=== PATIENT | male | born 1960 ===

== ENCOUNTER 2016-11-19 11:03 | Emergency (ER) | payer SELFPAY ==
[~2016-11-19] VITALS: Ht 188 cm; Wt 125.3 kg
[~2016-11-19 11:03] MED LIST: ASPEC81 PO; INSDGI SC; LISI40TA PO; METF-383 PO; SIMV40TA2 PO
[2016-11-19 11:09] VITALS: TEMP 36.9; Ht 188 cm; Wt 125.3 kg
[2016-11-19] MEDS ORDERED: ONDANSETRON INJ 2 MG/ML 2 ML VIAL IV STA (12:56)
[2016-11-19] MEDS ORDERED: MoRPHine SULFATE 4 MG/ML 1 ML CARP\\VIAL IV STA (12:56)
[2016-11-19 13:30] LABS: BASO % 0.2 %; BASO ABS # 0.02 K/uL (0-0.2); COMPLETE YES; EOS % 2.3 %; IG% 0.5 %; LYMPH % 19.9 %; LYMPH ABS # 1.84 K/uL (1.2-3.4); MEAN CELL VOLUME 84.4 fL (80-100); MEAN CORPUSCULAR HEMOGLOBIN 29.5 pg (25-34); MEAN PLATELET VOLUME 10.7 fL (7.4-10.4); NEUT % 71.1 %; PLATELET COUNT 195 K/uL (130-400); RED BLOOD COUNT 5.45 M/uL (4.7-6.1); WHITE BLOOD COUNT 9.24 K/uL (4.8-10.8)
[2016-11-19 13:51] LABS: ALT/SGPT 17 U/L (12-78); BLOOD UREA NITROGEN 12 mg/dl (7-18); BUN/CREATININE RATIO 8.3 (10-20); CALCIUM 9.4 mg/dl (8.5-10.1); CARBON DIOXIDE 28 mmol/L (21-32); CHLORIDE 100 mmol/L (98-107); GLUCOSE 282 mg/dl (70-99); POTASSIUM 3.7 mmol/L (3.5-5.1); SODIUM 139 mmol/L (136-145)
[2016-11-19 13:56] LABS: ALKALINE PHOSPHATASE 89 U/L (45-117); AST/SGOT 15 U/L (15-37)
[2016-11-19 14:33] LABS: URINE APPEARANCE CLEAR (CLEAR); URINE BILIRUBIN NEG (NEG); URINE COLOR YELLOW; URINE NITRITE NEG (NEG); URINE PH 6.5 (4.5-7.5); URINE SPECIFIC GRAVITY 1.016 (1.000-1.030); UROBILINOGEN NEG (NEG)
[2016-11-19 14:48] LABS: MANUAL MICROSCOPIC REQUIRED? NO; REVIEW REQ? NO
--- NOTE | 2016-11-19 15:03 | DIAGNOSTIC IMAGING REPORT ---
CHEST 2 VIEWS ROUTINE CLINICAL HISTORY: Chest pain. Evaluate for pneumonia. COMPARISON STUDY: No previous studies for comparison. FINDINGS: Lung volume are normal. No consolidation is identified. There is no pneumothorax or pleural effusion. Pulmonary vascularity is normal. There is borderline cardiomegaly. IMPRESSION: 1. No acute cardiopulmonary findings. 2. Top normal cardiac size. Electronically signed by: Jesus Cuenca M.D. 11/19/2016 3:01 PM Dictated Date/Time: 11/19/2016 3:00 PM
--- NOTE | 2016-11-19 15:12 | DIAGNOSTIC IMAGING REPORT ---
BILIARY ULTRASOUND CLINICAL HISTORY: Right upper quadrant abdominal pain COMPARISON STUDY: No previous studies for comparison. FINDINGS: The liver is of increased echogenicity, a finding which may indicate hepatic steatosis. There is a 1 cm hypoechoic nodule within the left lobe of the liver. The gallbladder appears sonographically normal. There is no gallbladder wall thickening and no evidence of pericholecystic fluid. The common bile duct is at the upper limits of normal in size measuring 6 mm. There is no right-sided hydronephrosis. Evaluation the pancreas was limited. IMPRESSION: 1. Ultrasonographically normal gallbladder. No evidence of ductal dilatation. 2. Common bile duct at the upper limits of normal in size measuring 6 mm 3. Suboptimal visualization of the pancreas 4. Nonspecific 1 cm hypoechoic nodule within the left lobe of the liver Electronically signed by: Brody Estrada M.D. 11/19/2016 3:10 PM Dictated Date/Time: 11/19/2016 3:07 PM
[2016-11-19] MEDS ORDERED: OPTIRAY 320 IV PRN (15:30)
--- NOTE | 2016-11-19 16:16 | DIAGNOSTIC IMAGING REPORT ---
CT OF THE ABDOMEN AND PELVIS WITH CONTRAST CLINICAL HISTORY: Upper abdominal pain. COMPARISON STUDY: None. TECHNIQUE: Following IV administration of 116 mL of Optiray-320, axial images of the abdomen and pelvis were obtained from the lung bases to the proximal femurs. Images were reviewed in the axial, sagittal, and coronal planes. IV contrast was administered without complication. CT DOSE: 2120.69 mGy.cm FINDINGS: The chest will be reported separately. The liver, spleen, adrenal glands are unremarkable. There are suspected cysts within the kidneys. There is no hydronephrosis. Both nephrograms are symmetric. No pneumatosis, free air or portal venous gas is present. There is mild infiltration adjacent to the distal stomach, pancreas, duodenum and within the alex hepatis. There is no biliary or pancreatic ductal dilatation. There is no evidence for a bowel obstruction. The appendix is normal. There is a fat-containing umbilical hernia. There is colonic diverticulosis without evidence for acute diverticulitis. IMPRESSION: Mild infiltration adjacent to the distal stomach, pancreas, duodenum and within the alex hepatis. This represents nonspecific inflammation and differential considerations include acute pancreatitis and peptic ulcer disease. No free air. No abscess. Electronically signed by: Jesus Cuenca M.D. 11/19/2016 4:14 PM Dictated Date/Time: 11/19/2016 4:05 PM
--- NOTE | 2016-11-19 16:25 | DIAGNOSTIC IMAGING REPORT ---
CHEST CTA for PULMONARY ARTERIES CT DOSE: HISTORY: Atypical chest pain. TECHNIQUE: Multiaxial CT images of the chest were performed following the intravenous administration of contrast to evaluate the pulmonary arteries. Maximal intensity projection images were also obtained. COMPARISON STUDY: Chest 11/19/2016. FINDINGS: The ascending thoracic aorta at the aortic root measures up to 4.4 cm in diameter. No evidence for dissection. The bilateral lower lobe segmental and subsegmental pulmonary arteries are nondiagnostic due to the motion artifact. The remaining pulmonary arteries are patent. No pleural or pericardial effusions. No mediastinal or hilar lymphadenopathy. Mild inflammatory change surrounding the pancreas. This is only partially visualized. No pneumothorax. The central airways are patent. No focal lung consolidations to suggest pneumonia. IMPRESSION: 1. No evidence for pulmonary embolus with limitations as described above. 2. Mild aneurysmal dilatation of the ascending thoracic aorta measuring up to 4.4 cm. . 3. Mild inflammatory change surrounding the pancreas. Please refer to the same day abdomen and pelvis CT for further evaluation. Electronically signed by: Fam Braga M.D. 11/19/2016 4:23 PM Dictated Date/Time: 11/19/2016 4:09 PM
[2016-11-19] MEDS ORDERED: ALUMINUM/MAGNESIUM SUSP 30 ML UDC PO STA (16:41)
[2016-11-19] MEDS ORDERED: LIDOCAINE HCL 2% VISC SOLN 20 ML UDC PO STA (16:41)
[2016-11-19] MEDS ORDERED: METOPROLOL TARTRATE 1 MG/ML VIAL IV STA (17:27)
[2016-11-19 18:09] VITALS: BP 148/82; PULSE 75; O2SAT 96
--- NOTE | 2016-11-19 19:13 | EMERGENCY ROOM VISIT NOTE ---
History Report prepared by Chalino: Junior Sanz Under the Supervision of: Dr. Robin Govea M.D. First contact with patient: 12:32 Chief Complaint: CHEST PAIN Stated Complaint: CHEST PAIN Nursing Triage Summary: Triage note: Pt reports chest pain, shortness of breath and nausea since yesterday. pt speaks Chanelle. 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 History of Present Illness The patient is a 56 year old male who presents to the Emergency Room with complaints of constant upper abdominal pain for the past 2 days. The pain is sharp in nature, and is rated 5/10 in severity. The pain is not exertional or modified after he eats. The pain does not radiate to the chest, jaw or arm. The patient also complains of nausea and multiple episodes of vomiting. He denies fevers, chills, chest pain, shortness of breath, diarrhea, black or bloody stools, increased leg swelling. He does not take Lasix for his baseline leg swelling. The patient does not have a history of abdominal surgeries. The patient has a history of diabetes and hypertension. Source of History: patient Onset: two days ago Position: abdomen (upper) Symptom Intensity: 5/10 Quality: sharp Timing: constant Associated Symptoms: + nausea, + vomiting, No SOB, No chest pain, No diarrhea, No fevers, No hematochezia, No melena Review of Systems See HPI for pertinent positives & negatives. A total of 10 systems reviewed and were otherwise negative. Past Medical & Surgical Medical Problems: (1) Diabetes mellitus, type II (2) Diabetic retinopathy (3) Dyslipidemia (4) Gout (5) Hypertension (6) Sleep apnea Family History Diabetes mellitus MOTHER Social History Smoking Status: Never Smoker Alcohol Use: occasionally Drug Use: none Marital Status: Housing Status: lives with family Occupation Status: employed Current/Historical Medications Scheduled Aspirin (Aspirin EC Low Dose), 81 MG PO DAILY Insulin Glargine (Lantus), 20 SC QPM Lisinopril (Zestril), 40 MG PO DAILY Metformin Hcl (Glucophage), 850 MG PO TIDM Simvastatin (Zocor), 40 MG PO QPM Allergies Coded Allergies: No Known Allergies (Unverified , 03/04/14) Physical Exam Vital Signs Date Time Temp Pulse Resp B/P Pulse Ox O2 Delivery O2 Flow Rate FiO2 11/19/16 18:09 75 16 148/82 96 11/19/16 17:38 83 157/100 11/19/16 16:52 81 17 162/91 94 Room Air 11/19/16 14:08 92 20 167/112 94 Room Air 11/19/16 13:59 90 11/19/16 13:17 87 20 170/116 96 11/19/16 11:30 86 11/19/16 11:09 36.9 88 18 177/117 98 Room Air Physical Exam Constitutional: Vital signs reviewed. Eyes: Pupils are equal round reactive to light. Conjunctiva are noninjected. ENT: Pharynx is clear without erythema or exudate. Mucous membranes are moist. Neck supple without meningeal signs. Respiratory: Clear to auscultation bilaterally. Breath sounds are equal bilaterally. Cardiovascular: Regular rate and rhythm. No rubs or gallops. GI: Soft, nondistended. Epigastric and right upper quadrant tenderness, no Stuart's sign. Bowel sounds are present. Musculoskeletal: No CVA tenderness. Bilateral lower extremity edema. Integumentary: No cyanosis. Neurological: The patient is awake and alert. No focal deficits. Psychiatric: Normal affect. Medical Decision & Procedures ER Provider Diagnostic Interpretation: X-ray results as stated below per interpretation by me and the radiologist: Other radiology results as stated below per my review and the radiologist's interpretation: CHEST 2 VIEWS ROUTINE CLINICAL HISTORY: Chest pain. Evaluate for pneumonia. COMPARISON STUDY: No previous studies for comparison. FINDINGS: Lung volume are normal. No consolidation is identified. There is no pneumothorax or pleural effusion. Pulmonary vascularity is normal. There is borderline cardiomegaly. IMPRESSION: 1. No acute cardiopulmonary findings. 2. Top normal cardiac size. Electronically signed by: Jesus Cuenca M.D. 11/19/2016 3:01 PM Dictated Date/Time: 11/19/2016 3:00 PM BILIARY ULTRASOUND CLINICAL HISTORY: Right upper quadrant abdominal pain COMPARISON STUDY: No previous studies for comparison. FINDINGS: The liver is of increased echogenicity, a finding which may indicate hepatic steatosis. There is a 1 cm hypoechoic nodule within the left lobe of the liver. The gallbladder appears sonographically normal. There is no gallbladder wall thickening and no evidence of pericholecystic fluid. The common bile duct is at the upper limits of normal in size measuring 6 mm. There is no right-sided hydronephrosis. Evaluation the pancreas was limited. IMPRESSION: 1. Ultrasonographically normal gallbladder. No evidence of ductal dilatation. 2. Common bile duct at the upper limits of normal in size measuring 6 mm 3. Suboptimal visualization of the pancreas 4. Nonspecific 1 cm hypoechoic nodule within the left lobe of the liver Electronically signed by: Brody Estrada M.D. 11/19/2016 3:10 PM Dictated Date/Time: 11/19/2016 3:07 PM CHEST CTA for PULMONARY ARTERIES CT DOSE: HISTORY: Atypical chest pain. TECHNIQUE: Multiaxial CT images of the chest were performed following the intravenous administration of contrast to evaluate the pulmonary arteries. Maximal intensity projection images were also obtained. COMPARISON STUDY: Chest 11/19/2016. FINDINGS: The ascending thoracic aorta at the aortic root measures up to 4.4 cm in diameter. No evidence for dissection. The bilateral lower lobe segmental and subsegmental pulmonary arteries are nondiagnostic due to the motion artifact. The remaining pulmonary arteries are patent. No pleural or pericardial effusions. No mediastinal or hilar lymphadenopathy. Mild inflammatory change surrounding the pancreas. This is only partially visualized. No pneumothorax. The central airways are patent. No focal lung consolidations to suggest pneumonia. IMPRESSION: 1. No evidence for pulmonary embolus with limitations as described above. 2. Mild aneurysmal dilatation of the ascending thoracic aorta measuring up to 4.4 cm. . 3. Mild inflammatory change surrounding the pancreas. Please refer to the same day abdomen and pelvis CT for further evaluation. Electronically signed by: Fam Braga M.D. 11/19/2016 4:23 PM Dictated Date/Time: 11/19/2016 4:[address] OF THE ABDOMEN AND PELVIS WITH CONTRAST CLINICAL HISTORY: Upper abdominal pain. COMPARISON STUDY: None. TECHNIQUE: Following IV administration of 116 mL of Optiray-320, axial images of the abdomen and pelvis were obtained from the lung bases to the proximal femurs. Images were reviewed in the axial, sagittal, and coronal planes. IV contrast was administered without complication. CT DOSE: 2120.69 mGy.cm FINDINGS: The chest will be reported separately. The liver, spleen, adrenal glands are unremarkable. There are suspected cysts within the kidneys. There is no hydronephrosis. Both nephrograms are symmetric. No pneumatosis, free air or portal venous gas is present. There is mild infiltration adjacent to the distal stomach, pancreas, duodenum and within the alex hepatis. There is no biliary or pancreatic ductal dilatation. There is no evidence for a bowel obstruction. The appendix is normal. There is a fat-containing umbilical hernia. There is colonic diverticulosis without evidence for acute diverticulitis. IMPRESSION: Mild infiltration adjacent to the distal stomach, pancreas, duodenum and within the alex hepatis. This represents nonspecific inflammation and differential considerations include acute pancreatitis and peptic ulcer disease. No free air. No abscess. Electronically signed by: Jesus Cuenca M.D. 11/19/2016 4:14 PM Dictated Date/Time: 11/19/2016 4:05 PM Laboratory Results 11/19/16 13:17 Red Blood Count 5.45, Mean Corpuscular Volume 84.4, Mean Corpuscular Hemoglobin 29.5, Mean Corpuscular Hemoglobin Concent 35.0, Mean Platelet Volume 10.7, Neutrophils (%) (Auto) 71.1, Lymphocytes (%) (Auto) 19.9, Monocytes (%) (Auto) 6.0, Eosinophils (%) (Auto) 2.3, Basophils (%) (Auto) 0.2, Neutrophils # (Auto) 6.57, Lymphocytes # (Auto) 1.84, Monocytes # (Auto) 0.55, Eosinophils # (Auto) 0.21, Basophils # (Auto) 0.02 11/19/16 13:17 Test 11/19/16 13:17 11/19/16 13:40 White Blood Count 9.24 K/uL (4.8-10.8) Red Blood Count 5.45 M/uL (4.7-6.1) Hemoglobin 16.1 g/dL (14.0-18.0) Hematocrit 46.0 % (42-52) Mean Corpuscular Volume 84.4 fL (80-100) Mean Corpuscular Hemoglobin 29.5 pg (25-34) Mean Corpuscular Hemoglobin Concent 35.0 g/dl (32-36) Platelet Count 195 K/uL (130-400) Mean Platelet Volume 10.7 fL (7.4-10.4) Neutrophils (%) (Auto) 71.1 % Lymphocytes (%) (Auto) 19.9 % Monocytes (%) (Auto) 6.0 % Eosinophils (%) (Auto) 2.3 % Basophils (%) (Auto) 0.2 % Neutrophils # (Auto) 6.57 K/uL (1.4-6.5) Lymphocytes # (Auto) 1.84 K/uL (1.2-3.4) Monocytes # (Auto) 0.55 K/uL (0.11-0.59) Eosinophils # (Auto) 0.21 K/uL (0-0.5) Basophils # (Auto) 0.02 K/uL (0-0.2) RDW Standard Deviation 40.9 fL (36.4-46.3) RDW Coefficient of Variation 13.9 % (11.5-14.5) Immature Granulocyte % (Auto) 0.5 % Immature Granulocyte # (Auto) 0.05 K/uL (0.00-0.02) Anion Gap 11.0 mmol/L (3-11) Est Creatinine Clear Calc Drug Dose 81.9 ml/min Estimated GFR () 64.2 Estimated GFR (Non- 55.4 BUN/Creatinine Ratio 8.3 (10-20) Calcium Level 9.4 mg/dl (8.5-10.1) Total Bilirubin 0.3 mg/dl (0.2-1) Direct Bilirubin < 0.1 mg/dl (0-0.2) Aspartate Amino Transf (AST/SGOT) 15 U/L (15-37) Alanine Aminotransferase (ALT/SGPT) 17 U/L (12-78) Alkaline Phosphatase 89 U/L (45-117) Troponin I < 0.015 ng/ml (0-0.045) Total Protein 6.9 gm/dl (6.4-8.2) Albumin 2.1 gm/dl (3.4-5.0) Lipase 338 U/L (73-393) Urine Color YELLOW Urine Appearance CLEAR (CLEAR) Urine pH 6.5 (4.5-7.5) Urine Specific [place] 1.016 (1.000-1.030) Urine Protein 4+ (NEG) Urine Glucose (UA) 3+ (NEG) Urine Ketones NEG (NEG) Urine Occult Blood 2+ (NEG) Urine Nitrite NEG (NEG) Urine Bilirubin NEG (NEG) Urine Urobilinogen NEG (NEG) Urine Leukocyte Esterase NEG (NEG) Urine WBC (Auto) 1-5 /hpf (0-5) Urine RBC (Auto) 0-4 /hpf (0-4) Urine Hyaline Casts (Auto) 0 /lpf (0-5) Urine Epithelial Cells (Auto) 10-20 /lpf (0-5) Urine Bacteria (Auto) NEG (NEG) Laboratory results as reviewed by me. Medications Administered Medications (Trade) Dose Ordered Sig/Evie Route Start Time Stop Time Status Last Admin Dose Admin Morphine Sulfate (MoRPHine SULFATE INJ) 4 mg ONE STAT IV 11/19/16 12:56 11/19/16 13:00 DC 11/19/16 13:29 4 MG Ondansetron HCl (Zofran Inj) 4 mg NOW STAT IV 11/19/16 12:56 11/19/16 13:00 DC 11/19/16 13:30 4 MG Lidocaine HCl (Viscous Lidocaine 2% Soln) 10 ml NOW STAT PO 11/19/16 16:41 11/19/16 16:42 DC 11/19/16 16:54 10 ML Al Hydroxide/Mg Hydroxide (Maalox Susp) 30 ml NOW STAT PO 11/19/16 16:41 11/19/16 16:42 DC 11/19/16 16:54 30 ML Metoprolol Tartrate (Lopressor Iv) 5 mg NOW STAT IV 11/19/16 17:27 11/19/16 17:29 DC 11/19/16 17:38 5 MG ECG Indication: abdominal pain Rate (beats per minute): 80 Rhythm: sinus rhythm Findings: Q waves (lead III), no ectopy ED Course 1240: The patient was evaluated by the [facility]. 1252: The patient was evaluated in room B10. A complete history and physical exam was performed. 1256: Zofran 4 mg IV, Morphine Sulfate 4 mg IV. 1515: Reassessed the patient. He still has pain and some tenderness. He is also short of breath. The flew back from [place] on Thursday. He agreed to a CT of his chest. 1641: Maalox 30 ml PO, Lidocaine 2% 10 ml PO. 1645: Talked with him about the test results. He will follow up with his doctor later this week. 1720: The patients blood pressure is 180/00. He says that he took his hypertension meds today. He is still having epigastric discomfort and denies chest pain. I reviewed the results with his son because he states that his parents have language difficulties. They will follow up with Dr. Ashby tomorrow. The patient does state that he drinks hard liquor everyday. 172: Lopressor 5 mg IV. 1753: The patient's pressure was 151/80. He is ready to go home. Medical Decision This is a 56-year-old male presents with upper abdominal pain. Differential diagnosis includes cholelithiasis, cholecystitis, gastritis, peptic ulcer disease, pancreatitis, pulmonary embolism, acute coronary syndrome. I did perform a limited focused review of portions of the patient's old chart on the electronic medical record. The patient has had no recent pertinent visits to this hospital. I did evaluate the patient as noted above. The patient is presenting with 2 days of upper abdominal pain. He is tender on examination. He denies chest pain or shortness of breath. IV access was established. He was treated with IV morphine and Zofran. The patient was placed on a continuous hospital monitor. I did order and personally review the patient's 12-lead EKG and chest x-ray as described above. I did order and review the patient's blood work as noted in the electronic medical record. His white blood cell count is not elevated. LFTs are unremarkable. Troponin is negative. Lipase is negative. Blood sugar is elevated. He is a diabetic. I did order an ultrasound of the right upper quadrant. I did review the images myself as well as the radiology report as described above. There is no evidence of gallbladder disease. He did have a hepatic nodule which I discussed with him and his . I did reassess the patient. He does have persistent pain and then he relates that he recently traveled from [place] on Thursday. After further discussion they agreed to CT scanning of the chest and abdomen to evaluate for possible PE or intra- abdominal process. CT scanning was performed and demonstrated inflammatory changes around the pancreas and duodenum and distal stomach. The patient does admit to drinking hard liquor every day. While his lipase is negative, is possible that he is early in the course of the season I recommended that his lipase the repeated. He was also told to stay on a liquid diet. He is also given a GI cocktail for possible gastritis or peptic ulcer disease. He also has aneurysmal dilatation of the ascending aorta. I do not believe this is related to his pain. He states his pain is all in the epigastric region and upper abdomen and he has distinct tenderness in that area. He denies having chest pain. He did have an elevated blood pressure but stated that he took his blood pressure medicine today. I did give him a small dose of Lopressor 5 mg IV and his blood pressure improved significantly. I did review the test results with the patient's son who stated that they would have him follow up with his doctor tomorrow for reevaluation. He will require referral to vascular surgery regarding his aneurysm. He was discharged in good condition and given return instructions as outlined below. Impression Primary Impression: Upper abdominal pain Additional Impressions: Hyperglycemia Mild dilation of ascending aorta Hypertension Scribe Attestation The scribe's documentation has been prepared under my direct and personally reviewed by me in its entirety. I confirm that the note above accurately reflects all work, treatment, procedures, and medical decision making performed by me. Departure Information Dispostion Home / Self-Care Referrals Cherry Ashby M.D. (PCP) Forms HOME CARE DOCUMENTATION FORM, IMPORTANT VISIT INFORMATION Patient Instructions A Signature Page, ED Abd Pain Unkn Cause Male, [facility] Additional Instructions You have been examined and treated today on an emergency basis only. This is not a substitute for, or an effort to provide, complete comprehensive medical care. It is impossible to recognize and treat all injuries or illnesses in a single emergency department visit. It is therefore important that you follow up closely with your physician in 24-48 hours. Call as soon as possible for an appointment. Have your doctor repeat her pancreatic enzyme(lipase) as he had inflammation around his stomach, duodenum and pancreas on CT scan. She also needs to refer you to a cardiothoracic surgeon because of your aortic aneurysm. Also have your doctor recheck your blood pressure which was elevated today. Avoid any alcohol. Stay on a liquid diet and keep a close eye on your blood sugars. Hold your metformin for 48 hours as you had IV contrast. Return for worsening symptoms or if you develop chest pain, difficulty breathing , fever, vomiting, or any other concerning symptoms. Problem Qualifiers
[2017-01-05] MEDS ORDERED: ALLO100T PO (13:44)
[2017-01-05] MEDS ORDERED: GLY/5 PO (13:44)
[2017-01-05] MEDS ORDERED: ASPI81TA28 PO (13:44)
[2017-01-05] MEDS ORDERED: ATOR-22 PO (13:44)
[2017-01-05] MEDS ORDERED: AMIT25TA9 PO (13:44)
[2017-02-27] MEDS ORDERED: AMOX500T PO (11:20)
[2017-03-17] MEDS ORDERED: AMOX500C3 PO (07:56)
[2017-03-17] MEDS ORDERED: SULF800T23 PO (07:56)
[2017-04-14] MEDS ORDERED: CIPR1TAB11 PO (09:03)
[2017-04-14] MEDS ORDERED: AMOX500C3 PO (09:03)
== END 2016-11-19 18:10 | disposition home or self-care (01) ==
LOC: C.EDB 11:05
DX: R10.10 Upper abdominal pain, unspecified (principal); E11.65 Type 2 diabetes mellitus with hyperglycemia; I71.2 Thoracic aortic aneurysm, without rupture; E11.319 Type 2 diabetes mellitus with unspecified diabetic retinopathy without macular edema; Z79.4 Long term (current) use of insulin; Z79.84 Long term (current) use of oral hypoglycemic drugs; Z79.82 Long term (current) use of aspirin; M10.9 Gout, unspecified; K57.30 Diverticulosis of large intestine without perforation or abscess without bleeding; E78.5 Hyperlipidemia, unspecified; G47.30 Sleep apnea, unspecified; I10 Essential (primary) hypertension; Z83.3 Family history of diabetes mellitus

== ENCOUNTER → 2017-01-06 | Day surgery (SDC) | payer SELFPAY ==
[2017-01-05 13:37] VITALS: BMI 37.0
[~2017-01-06] VITALS: Ht 188 cm; Wt 129.6 kg
[~2017-01-06] MED LIST changes: +ALLO100T PO; +AMIT25TA9 PO; +AMOX500C3 PO; +AMOX500T PO; -ASPEC81 PO; +ASPI81TA28 PO; +ATOR-22 PO; +CIPR1TAB11 PO; +GLY/5 PO; +LIDOCAINE HCL 2% 2 ML VIAL (20MG/ML) ONE; +ONDANSETRON INJ 2 MG/ML 2 ML VIAL IV PRN; +PROPOFOL IV EMULSION 10 MG/ML 20 ML VIAL IV ONE; -SIMV40TA2 PO; +SULF800T23 PO
[2017-01-06 12:15] VITALS: Ht 188 cm; Wt 129.6 kg
[2017-01-06 12:25] VITALS: TEMP 36.7
--- NOTE | 2017-01-06 12:42 | Endo History and Physical ---
History & Physical Date of Service: Jan 06, 2017. Chief Complaint: screening Referring Physician: Dr. Trinh History of Present Illness history of colonic polyps for surveillance colonoscopy today. Also with a history of intermitant epigastric and abdominal pain with nausea. Referred for EGD. Past Medical History Diabetes, Sleep Apnea Past Surgical History Hx Cardiac Surgery: No Hx Internal Defibrillator: No Hx Pacemaker: No Hx Abdominal Surgery: No Hx of Implantable Prosthesis: No Hx Post-Op Nausea and Vomiting: No Hx Cancer Surgery: No Hx Thoracic Surgery: No Hx Orthopedic: No Hx Urinary Tract Surgery: No Family History None Social History Smoking Status: Never Smoker Hx Substance Use: No Hx Alcohol Use: No Allergies Coded Allergies: No Known Allergies (Verified , 01/06/17) Current Medications Reported Home Medications Medications Dose Route/Sig Max Daily Dose Days Date Category Dose Instructions Aspirin Ec (Aspirin) 81 Mg Tab 2 Tabs PO HS 01/05/17 Reported Lipitor (Atorvastatin Calcium) 20 Mg Tab 20 Mg PO QAM 01/05/17 Reported Elavil (Amitriptyline Hcl) 25 Mg Tab 25 Mg PO HS 01/05/17 Reported Zyloprim (Allopurinol) 100 Mg Tab 100 Mg PO BID 01/05/17 Reported Diabeta (Glyburide) 5 Mg Tab 5 Mg PO BID 01/05/17 Reported Lantus (Insulin Glargine) Vial 25 Units SC 1-2XWEEK 07/27/15 Reported 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 Zestril (Lisinopril) 40 Mg Tab 40 Mg PO QAM 05/07/15 Reported Glucophage (Metformin Hcl) 850 Mg Tab 850 Mg PO TIDM 05/07/15 Reported Vital Signs Weight (Kilograms): 129.55 Height (Feet): 6 Height (Inches): 2 Date Time Temp Pulse Resp B/P Pulse Ox O2 Delivery O2 Flow Rate FiO2 01/06/17 12:25 36.7 76 20 172/105 97 Room Air Physical Exam General Appearance: no apparent distress Respiratory/Chest: Auscultation: breath sounds normal Cardiovascular: Heart Auscultation: RRR Abdomen: Inspection & Palpation: soft, RUQ tenderness Assessment and Plan EGD for evaluation of abdominal pain, colonoscopy for evaluation for large colon polyps in the past.
--- NOTE | 2017-01-06 13:40 | GI REPORT ---
Procedure Date: 01/06/2017 12:42 PM Procedure: Upper GI endoscopy Indications: Epigastric abdominal pain, Abdominal pain in the right upper quadrant Medicines: Monitored Anesthesia Care Complications: No immediate complications. Estimated blood loss: Minimal. Estimated Blood Loss: Estimated blood loss was minimal. Procedure: Pre-Anesthesia Assessment: - Prior to the procedure, a History and Physical was performed, and patient medications, allergies and sensitivities were reviewed. The patient's tolerance of previous anesthesia was reviewed. - The risks and benefits of the procedure and the sedation options and risks were discussed with the patient. All questions were answered and informed consent was obtained. - Patient identification and proposed procedure were verified prior to the procedure by the physician, the nurse and the drywall professional. The procedure was verified in the procedure room. - Pre-procedure physical examination revealed no contraindications to sedation. - ASA Grade Assessment: III - A patient with severe systemic disease. - After reviewing the risks and benefits, the patient was deemed in satisfactory condition to undergo the procedure. - The anesthesia plan was to use monitored anesthesia care (MAC). - Immediately prior to administration of medications, the patient was re-assessed for adequacy to receive sedatives. - The heart rate, respiratory rate, oxygen saturations, blood pressure, adequacy of pulmonary ventilation, and response to care were monitored throughout the procedure. - The physical status of the patient was re-assessed after the procedure. After obtaining informed consent, the endoscope was passed under direct vision. Throughout the procedure, the patient's blood pressure, pulse, and oxygen saturations were monitored continuously. The scope was introduced through the mouth, and advanced to the third part of duodenum. The upper GI endoscopy was accomplished without difficulty. The patient tolerated the procedure well. Findings: The examined esophagus was normal. The Z-line was regular and was found 38 cm from the incisors. Diffuse mild inflammation characterized by erythema and granularity was found in the entire examined stomach. Biopsies were taken with a cold forceps for histology. Estimated blood loss was minimal. The examined duodenum was normal. Biopsies were taken with a cold forceps for histology. Estimated blood loss was minimal. Impression: - Normal esophagus. - Z-line regular, 38 cm from the incisors. - Gastritis. Biopsied. - Normal examined duodenum. Biopsied. Recommendation: - Perform a colonoscopy today. - Await pathology results. - Observe patient's clinical course. - If symptoms persist would screen for Gallstones and consider stopping Metformin. Maria Fernanda Edwards D.O. Maria Fernanda Edwards, 01/06/2017 1:40:01 PM This report has been signed electronically. Note Initiated On: 01/06/2017 12:42 PM I attest to the content of the Intraoperative Record and orders documented therein, exceptions below
--- NOTE | 2017-01-06 13:44 | GI REPORT ---
Procedure Date: 01/06/2017 12:42 PM Procedure: Colonoscopy Indications: High risk colon cancer surveillance: Personal history of colonic polyps Medicines: Monitored Anesthesia Care Complications: No immediate complications. Estimated blood loss: Minimal. Estimated Blood Loss: Estimated blood loss was minimal. Procedure: Pre-Anesthesia Assessment: - Prior to the procedure, a History and Physical was performed, and patient medications, allergies and sensitivities were reviewed. The patient's tolerance of previous anesthesia was reviewed. - The risks and benefits of the procedure and the sedation options and risks were discussed with the patient. All questions were answered and informed consent was obtained. - Patient identification and proposed procedure were verified prior to the procedure by the physician, the nurse and the termite control service representative. The procedure was verified in the procedure room. - Pre-procedure physical examination revealed no contraindications to sedation. - ASA Grade Assessment: III - A patient with severe systemic disease. - After reviewing the risks and benefits, the patient was deemed in satisfactory condition to undergo the procedure. - The anesthesia plan was to use monitored anesthesia care (MAC). - Immediately prior to administration of medications, the patient was re-assessed for adequacy to receive sedatives. - The heart rate, respiratory rate, oxygen saturations, blood pressure, adequacy of pulmonary ventilation, and response to care were monitored throughout the procedure. - The physical status of the patient was re-assessed after the procedure. After I obtained informed consent, the scope was passed under direct vision. Throughout the procedure, the patient's blood pressure, pulse, and oxygen saturations were monitored continuously. The scope was introduced through the anus and advanced to the cecum, identified by appendiceal orifice and ileocecal valve. The colonoscopy was performed without difficulty. The patient tolerated the procedure well. The quality of the bowel preparation was fair. Findings: The perianal and digital rectal examinations were normal. Pertinent negatives include normal sphincter tone. A 7 mm polyp was found in the ascending colon. The polyp was sessile. The polyp was removed with a hot snare. Resection and retrieval were complete. Estimated blood loss was minimal. Two semi-sessile polyps were found in the transverse colon. The polyps were 7 to 10 mm in size. These polyps were removed with a hot snare. Resection and retrieval were complete. Estimated blood loss was minimal. A 5 mm polyp was found in the sigmoid colon. The polyp was sessile. The polyp was removed with a cold snare. Resection and retrieval were complete. Estimated blood loss was minimal. Internal hemorrhoids were found during retroflexion. The hemorrhoids were mild. The exam was otherwise without abnormality. Impression: - One 7 mm polyp in the ascending colon, removed with a hot snare. Resected and retrieved. - Two 7 to 10 mm polyps in the transverse colon, removed with a hot snare. Resected and retrieved. - One 5 mm polyp in the sigmoid colon, removed with a cold snare. Resected and retrieved. - Internal hemorrhoids. - The examination was otherwise normal. Recommendation: - Discharge patient to home (ambulatory). - Advance diet as tolerated today. - Await pathology results. - Repeat colonoscopy in 3 years for surveillance. - Return to GI office PRN. Maria Fernanda Edwards D.O. Maria Fernanda Edwards, 01/06/2017 1:43:43 PM This report has been signed electronically. Note Initiated On: 01/06/2017 12:42 PM I attest to the content of the Intraoperative Record and orders documented therein, exceptions below
--- NOTE | 2017-01-06 13:48 | Discharge Instructions ---
Endoscopy Patient Instructions Date / Procedure(s) Performed Jan 06, 2017. Colonoscopy, EGD Allergy Information Coded Allergies: No Known Allergies (Verified , 01/06/17) Discharge Date / Findings Jan 06, 2017. Mild gastritis (likely related to medications) Multiple colon polyps Internal hemorrhoids Medication Instructions Reported Home Medications Medications Dose Route/Sig Max Daily Dose Days Date Category Dose Instructions Aspirin Ec (Aspirin) 81 Mg Tab 2 Tabs PO HS 01/05/17 Reported Lipitor (Atorvastatin Calcium) 20 Mg Tab 20 Mg PO QAM 01/05/17 Reported Elavil (Amitriptyline Hcl) 25 Mg Tab 25 Mg PO HS 01/05/17 Reported Zyloprim (Allopurinol) 100 Mg Tab 100 Mg PO BID 01/05/17 Reported Diabeta (Glyburide) 5 Mg Tab 5 Mg PO BID 01/05/17 Reported Lantus (Insulin Glargine) Vial 25 Units SC 1-2XWEEK 07/27/15 Reported 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 - Do not drink alcohol the day of the procedure. - Do not drive a car or operate machinery until the day after the procedure. - Do not make any important decisions or sign important papers in 24 hours after the procedure. Following Day: - Return to full activity which may include returning to work/school. Diet Start your diet with liquids and light foods (jello, soup, juice, toast). Then eat your usual diet if not nauseated. Treatment For Common After Affects For mild abdominal pain, bloating, or excessive gas: - Rest - Eat lightly - Lie on right side Follow-Up Information Follow-up with Dr. Ashby as scheduled If abdominal pain persists would suggest evaluation for gallbladder problems and perhaps temporarily stopping metformin. Anesthesia Information What You Should Know You have had a procedure that required some medicine to reduce anxiety and discomfort. This treatment is called moderate sedation. After receiving the treatment, you may be sleepy, but you will be able to breathe on your own. The effects of the treatment may last for several hours. Follow these instructions along with Activity/Diet recommendations noted above: * Do NOT do anything where dizziness or clumsiness would be dangerous. * Rest quietly at home today, then you can be up and about tomorrow. * Have a responsible person stay with you the rest of today. * You may have had an I.V. today. If so, you may take the dressing off later today. Recommendations Call your doctor if: * Trouble breathing * Continuous vomiting for more than 24 hours * Temperature above 101 degrees * Severe abdominal pain or bloating * Pain not relieved by pain medicine ordered * There is increased drainage or redness from any incision * A large amount of rectal bleeding greater than 2-3 tablespoons. (If you had a polyp/s removed or have hemorrhoids, a small amount of blood - from the rectum is to be expected.) * You have any unanswered questions or concerns. IN THE EVENT OF A SERIOUS EMERGENCY, GO TO THE NEAREST EMERGENCY ROOM Your discharge instructions were prepared by provider Maria Fernanda Edwards. Patient Instructions Signature Page Amrik Weinstein Patient (or Guardian) Signature/Date: I have read and understand the instructions given to me by my caregivers. Caregiver/RN/Doctor Signature/Date: The above-named patient and/or guardian has received patient instructions on this date. + Original Patient Signature Page (only) stays with chart. Please make copy for patient.
[2017-01-06 13:55] VITALS: BP 177/100; PULSE 74; O2SAT 97
--- NOTE | 2017-01-06 15:31 | Anesthesiology Progress Note ---
Anesthesia Post Op Note Date & Time Jan 06, 2017 at 15:31 Vital Signs Pain Intensity: 0 Vital Signs Past 12 Hours Date Time Temp Pulse Resp B/P Pulse Ox O2 Delivery O2 Flow Rate FiO2 01/06/17 13:55 74 18 177/100 97 Nasal Cannula 01/06/17 13:46 73 16 179/113 97 Room Air 01/06/17 13:36 73 16 168/96 99 Mask 9 01/06/17 12:25 36.7 76 20 172/105 97 Room Air Notes Mental Status: alert / awake / arousable, participated in evaluation Pt Amnestic to Procedure: Yes Nausea / Vomiting: adequately controlled Pain: adequately controlled Airway Patency, RR, SpO2: stable & adequate BP & HR: stable & adequate Hydration State: stable & adequate Anesthetic Complications: no major complications apparent
== END | disposition home or self-care (01) ==
LOC: C.GI 11:45
PROVIDERS: ATTEND Internal Medicine Gastroenterology
DX: Z12.11 Encounter for screening for malignant neoplasm of colon (principal); Z86.010 Personal history of colon polyps; K29.50 Unspecified chronic gastritis without bleeding; D12.2 Benign neoplasm of ascending colon; D12.3 Benign neoplasm of transverse colon; D12.5 Benign neoplasm of sigmoid colon; K64.8 Other hemorrhoids; E66.9 Obesity, unspecified; N18.9 Chronic kidney disease, unspecified; E11.22 Type 2 diabetes mellitus with diabetic chronic kidney disease; Z79.4 Long term (current) use of insulin; G47.33 Obstructive sleep apnea (adult) (pediatric); Z68.37 Body mass index [BMI] 37.0-37.9, adult; K27.9 Peptic ulcer, site unspecified, unspecified as acute or chronic, without hemorrhage or perforation; R10.11 Right upper quadrant pain; R10.13 Epigastric pain